=== PATIENT | female | born 1995 | race Caucasian/White ===

== ENCOUNTER 2019-11-05 13:13 | Emergency (ER) | payer OTHER ==
[~2019-11-05] VITALS: Ht 162.6 cm; Wt 77.1 kg
[2019-11-05] MEDS ORDERED: MINASTRIN 24 F1 EACH PO (14:13)
[2019-11-05] MEDS ORDERED: ZOLOFT50 M1 PO (14:14)
[2019-11-05] MEDS ORDERED: GILENYA0.5 MG PO (14:15)
--- NOTE | 2019-11-05 16:22 | EKG ---
[facility] [place] [address] ELECTROCARDIOGRAM REPORT Name: KEYUR JACKMAN Room #: REG [facility]#: [id number] Admission: 11/05/19 Attend Phys: Discharge: Date of : 89 Report #: [id number] THIS REPORT FOR: cc: Mariah Howard Cindy RNP Couchonnal, Luis F. MD ~ THIS REPORT FOR: //name// [facility] ED Test Date: 2019-11-05 Test Time: 13:15:00 Pat Name: KEYUR JACKMAN Department: Room: Gender: Ceramic Artist: CHEMA : 1995 Requested By: Keshav Carroll Order Number: [id number] MD: Milind Song Measurements Intervals [place] Rate: 86 P: 45 AL: 115 QRS: 68 QRSD: 88 T: 13 QT: 345 QTc: 413 Interpretive Statements Sinus rhythm Borderline short AL interval Probable left atrial enlargement No previous ECG available for comparison Electronically Signed On 11-05-2019 16:21:01 [employer] by Milind Song [email or web address] <ELECTRONICALLY SIGNED> By: Milind Song MD 11/05/19 1621 1315 1315 Milind Song MD /FLAKITA
[2019-11-05 16:40] VITALS: BP 119/59
== END 2019-11-05 16:40 | disposition home or self-care (01) ==
LOC: ER 13:13
DX: R07.89 Other chest pain (principal); G35 Multiple sclerosis; F41.9 Anxiety disorder, unspecified; F32.9 Major depressive disorder, single episode, unspecified; Z87.891 Personal history of nicotine dependence